=== PATIENT | female | born 1945 | race Caucasian/White ===

== ENCOUNTER 2016-12-08 09:00 | Day surgery (SDC) | payer OTHER ==
[2016-12-01 12:29] VITALS: BMI 27.4
[2016-12-08] MEDS ORDERED: MIDAZOLAM HCL 2 MG/2 ML SINGLE DOSE VIAL ONE (10:29)
[2016-12-08] MEDS ORDERED: ROCURONIUM BROMIDE 50 MG/5 ML VIAL ONE (10:31)
[2016-12-08] MEDS ORDERED: THROMBIN (BOVINE) 5,000 UNIT VIAL TP ONE ×3 (11:02→12:29)
[2016-12-08] MEDS ORDERED: GUM MASTIC/STORAX/MSAL/ALCOHOL 1 DRP DROPSBTL MC ONE (11:03)
[2016-12-08] MEDS ORDERED: GELATIN, ABSORBABLE 100 EACH SPONGE TP ONE ×2 (11:03→12:29)
[2016-12-08] MEDS ORDERED: ePHEDrine SULFATE 50 MG/1 ML AMPULE ONE (12:00)
[2016-12-08] MEDS ORDERED: ZOLPIDEM TARTRATE 5 MG TABLET PO PRN (14:21)
[2016-12-08] MEDS ORDERED: OXYCODONE/APAP 5/325MG COMBO TABLET PO PRN (14:21)
[2016-12-08] MEDS ORDERED: morphine CARPU-JECT 4 MG/1 ML DISP.SYRIN IM PRN (14:22)
[2016-12-08] MEDS ORDERED: SODIUM CHLORIDE 0.45% 1,000 ML IV SCH (14:30)
[2016-12-08] MEDS ORDERED: METHOTREXATE 2.5 MG TABLET PO SCH (14:30)
[2016-12-08] MEDS ORDERED: LACTATED RINGERS SOLUTION 1,000 ML IV SCH (14:45)
[2016-12-08] MEDS ORDERED: ONDANSETRON 4 MG/2 ML VIAL IVPUSH PRN (15:34)
[2016-12-08] MEDS: CEFAZOLIN 1 GM/D5W 50 ML IVPB SCH (17:19)
[2016-12-08] MEDS: FOLIC ACID 1 MG TABLET (FP) PO SCH (21:48)
[2016-12-08] MEDS: HYDROXYCHLOROQUINE SO4 200 MG TABLET (FP) PO SCH (21:48)
[2016-12-08] MEDS: DOCUSATE SODIUM 100 MG CAPSULE (FP) PO SCH (21:48)
[2016-12-08] MEDS: OXYCODONE/APAP 5/325MG COMBO TABLET PO PRN (21:49)
[2016-12-08] MEDS ORDERED: VALSARTAN 80 MG TABLET (UD) PO SCH (22:00)
[2016-12-09] MEDS: CEFAZOLIN 1 GM/D5W 50 ML IVPB SCH (01:11)
[2016-12-09 06:21] VITALS: PULSE 66
[2016-12-09] MEDS: OXYCODONE/APAP 5/325MG COMBO TABLET PO PRN (07:55)
--- NOTE | 2016-12-09 08:14 | PN ---
Progress Note (short form) - Note Progress Note: 71 F POD1 laminectomy L3-4-5 under general anesthetic doing well. AVSS, reports no anesthetic complicatons. Pain is well controlled. Sensory and motor exam is unchanged from baseline.
[2016-12-09] MEDS: HYDROXYCHLOROQUINE SO4 200 MG TABLET (FP) PO SCH (09:30)
[2016-12-09] MEDS: DOCUSATE SODIUM 100 MG CAPSULE (FP) PO SCH (09:30)
[2016-12-09] MEDS: FOLIC ACID 1 MG TABLET (FP) PO SCH (09:31)
[2016-12-09] MEDS ORDERED: PANTOPRAZOLE 40 MG TABLET (FP) PO SCH (10:00)
[2016-12-09] MEDS ORDERED: SERTRALINE HCL 50 MG TABLET (FP) PO SCH (10:00)
[2016-12-09] MEDS ORDERED: ATENOLOL 25 MG TABLET (FP) PO SCH (10:00)
[2016-12-09] MEDS ORDERED: LACTASE 3000 UNIT PO SCH (10:00)
[2016-12-09 10:14] VITALS: BP 130/90; TEMP 99.2
--- NOTE | 2016-12-09 11:30 | PN ---
Progress Note (short form) - Note Progress Note: states only back pain, legs much better with walking Afeb dressing clean NVID s/p 2 level laminectomy -d/c with home PT -wound care discussed -f/u next week
--- NOTE | 2016-12-17 20:34 | OP ---
DATE OF OPERATION: 12/08/2016 PREOPERATIVE DIAGNOSES: 1. Lumbar spinal stenosis. 2. Neurogenic claudication. POSTOPERATIVE DIAGNOSES: 1. Lumbar spinal stenosis. 2. Neurogenic claudication. PROCEDURE PERFORMED: Two-level lumbar decompressive laminectomy of L3-4 and L4-5. SURGEON: Trip Santana MD PBX SUPERVISOR: WILLEM Paredes ANESTHESIA: General. INDICATION: The patient is a 71-year-old female with severe longstanding bilateral lower extremity radicular pain and difficulty ambulating more than short distances. She has refractory to management with nonoperative treatment and is indicated for operative decompression. Risks, benefits and alternatives of the surgery were discussed in detail with the patient. Informed consent was obtained. DESCRIPTION: The patient was brought to the operating room via stretcher and general endotracheal anesthesia was administered by the anesthesiologist. The patient was then flipped into the prone position onto a padded Trevor frame. All bony prominences were padded. The back was then prepped and draped in the usual sterile fashion. A fluoroscopic C-arm was placed to allow for intraoperative lateral fluoroscopic radiographs. The back was then prepped and draped in the usual sterile fashion. Prophylactic IV antibiotics were administered. A time-out was performed. A midline incision was then made at the appropriate level. Dissection was carried down to the level of the fascia. The fascia was then split with electrocautery. Subperiosteal dissection was carried down, exposing the bony spine and the L4 and L3 laminae. A deep retractor was then placed. A complete decompressive laminectomy of the L4-L5 level was performed with a complete excision of the L4 lamina. There was medial facetectomy and foraminotomy performed to allow for external decompression of the lateral recesses. A subtotal laminectomy of the L3 lamina was then performed, decompressing the L3-4 level. External decompression was noted. There was noted to be severe spinal stenosis at both levels, in keep with the MRI. The wounds were then copiously irrigated. Hemostasis was achieved. The deep fascia was then closed with number 1 Vicryl suture in interrupted fashion. The deep dermal tissues were approximated with 2-0 Vicryl suture and the skin was closed with waqar. A sterile dressing was applied. Kemi Cohen was necessary throughout the case, who provided assistance in retraction of the neural elements in the laminectomy portion of the procedure. This could not have been done without a skilled employee relations assistant. Carlie [id number]
== END 2016-12-09 12:51 | disposition home health service (06) ==
LOC: FASU 09:00 → FM/S 16:26 → FASU 12-09 12:51
PROVIDERS: ATTEND Orthopaedic Surgery Orthopaedic Surgery of the Spine
PROC: 01NB0ZZ Release Lumbar Nerve, Open Approach (ICD-10-PCS; principal; 2016-12-08 12:02)
DX: M48.06 Spinal stenosis, lumbar region (principal)
CPT/HCPCS: 72100-TC; 76001-TC; 94760; 97116-GP

== ENCOUNTER 2018-06-08 14:01 | Observation (INO) | payer OTHER ==
[2018-06-08] MEDS ORDERED: LIDOCAINE 5% TOPICAL PATCH TP ONE (14:29)
[2018-06-08] MEDS ORDERED: CYCLOBENZAPRINE HCL 5 MG TABLET PO ONE (14:29)
[2018-06-08] MEDS ORDERED: ACETAMINOPHEN 325 MG TABLET (FP) PO ONE (14:29)
[2018-06-08] MEDS ORDERED: CYCLOBENZAPRINE HCL 10 MG TABLET (FP) ONE (14:36)
[2018-06-08] MEDS ORDERED: ACETAMINOPHEN 325 MG TABLET (FP) ONE (14:36)
--- NOTE | 2018-06-08 15:01 | PDOC ---
History of Present Illness - General Chief Complaint: Pain Stated Complaint: BACK PAIN AND DIFFICULTY WALKING Time Seen by Provider: 06/08/18 14:29 History Source: Patient Exam Limitations: No Limitations - History of Present Illness Initial Comments: 06/08/18 14:56 Jerri 72 YOF with h/o degenerative disc disease s/p laminectomy L3-4-5 in 2017 , urinary incontinence, rheumatoid arthritis, HTN, GERD, hiatal hernia presenting with lower back pain radiating down right leg. denies trauma. worse with walking, no paresthesias or weakness, urinary retention or bowel incontinence; +chronic urinary incontinence. +increased instability and difficulty walking x 2 days with increased lower back and RLE pain. last night - experienced syncopal episode, last remembered getting up to go use the toilet and does not recall events. heard a thud and found her on her knees next to the toilet. denies prodromal sx. did not use walker last night. has been followed with programmer business and neurologist for workup of confusion, possible TIA vs seizure for similar symptoms/episodes +also endorses chronic dry cough x 2-3 months, but no sob or cp or dizziness/ fevers. last epidural injection in October 2017 for back pain, no recent use, fevers or chills or IVDU or h/o malignancy PCP: Dr. Comer Neurologist: Dr. Jesus Espinoza, [place]. 06/08/18 17:02 06/08/18 17:02 Past History - Past Medical History Allergies/Adverse Reactions: Allergies Allergy/AdvReac Type Severity Reaction Status Date / Time azithromycin Allergy Intermediate Rash Verified 06/08/18 14:04 erythromycin base Allergy Intermediate Rash Verified 06/08/18 14:05 [Erythromycin Base] abatacept [From Orencia] AdvReac Severe headache/vo Verified 06/08/18 14:05 miting Home Medications: Ambulatory Orders Methotrexate Sodium [Methotrexate] 15 mg PO ASDIR tablet 11/06/15 Sertraline HCl [Zoloft -] 100 mg PO HS 01/28/16 Atenolol [Tenormin -] 25 mg PO DAILY 12/01/16 Leucovorin Calcium 10 mg PO HS tablet 02/24/17 Anemia: No Asthma: No Cancer: No Cardiac Disorders: No CVA: No COPD: No CHF: No Dementia: No Diabetes: No GI Disorders: Yes (GERD,HIATAL HERNIA) Disorders: No HTN: Yes Hypercholesterolemia: No Liver Disease: No Seizures: No Thyroid Disease: No Other medical history: RHEUMATOID ARTHRITIS - Surgical History Abdominal Surgery: No Appendectomy: No Cardiac Surgery: No Cholecystectomy: No Lung Surgery: No Neurologic Surgery: No Orthopedic Surgery: Yes - Immunization History Td Vaccination: No TDAP Vaccination: No Immunization Up to Date: Yes - Suicide/Smoking/Psychosocial Hx Smoking Status: No Smoking History: Former smoker Have you smoked in the past 12 months: No Number of Cigarettes Smoked Daily: 0 If you are a former smoker, when did you quit?: 30 YEARS Information on smoking cessation initiated: No Hx Alcohol Use: No Drug/Substance Use Hx: No Substance Use Type: None Hx Substance Use Treatment: No Review of Systems - Review of Systems Able to Perform ROS?: Yes Comments:: 06/08/18 15:02 GENERAL/CONSTITUTIONAL: No fever or chills. No weakness. no sweats. HEAD, EYES, EARS, NOSE AND THROAT: No change in vision or hearing. CARDIOVASCULAR: No chest pain or palpitations, or edema. +syncope RESPIRATORY: No SOB, wheezing. +cough GASTROINTESTINAL No nausea/vomiting. No diarrhea or constipation. No bloody stools. GENITOURINARY: No hematuria, dysuria, frequency, urgency or other changes. + chronic urinary incontinence. MUSCULOSKELETAL: No joint or muscle swelling. +back pain. +knee pain SKIN: No rash or changes in skin color or lesions. NEUROLOGIC: No headache, vertigo, or change in strength/sensation. +gait instability. +syncope/LOC HEMATOLOGIC/LYMPHATIC: No anemia, easy bruising/bleeding, or history of blood clots. ALLERGIC/IMMUNOLOGIC: No allergies All other systems reviewed and negative, or as documented in HPI. *Physical Exam - Vital Signs Last Vital Signs Temp Pulse Resp BP Pulse Ox 98.9 F 68 18 153/81 100 06/08/18 14:04 06/08/18 14:04 06/08/18 14:04 06/08/18 14:04 06/08/18 14:04 - Physical Exam Comments: 06/08/18 15:01 General: Well appearing, awake and alert, NAD. HEENT: NCAT, PERRL, EOMI, clear conjunctiva, anicteric, moist mucus membranes, clear oropharynx, no oral lesions.. Neck: neck supple, FROM, no JVD Resp: CTAB, normal and even respirations, no respiratory distress CVS: RRR, no murmurs, 2+ peripheral pulses throughout, no peripheral edema Abdomen: soft, NTND, no peritoneal signs. Back: normal inspection and ROM, +right paravertebral lumbar tenderness; no midline tenderness or bony stepoffs. MSK: no edema, KIM x4, ROM intact. No clubbing or cyanosis. normal bulk and tone. Neg SLR bilaterally. old surgical scar over left knee. +palp right prox tibia and anterior knee TTP w/o overlying skin changes or swelling. +RLE calf TTP. Neuro: alert, oriented appropriately; no focal neurologic deficits. SILT, 5/5 distal and prox strength in all extrem. speech clear. Skin: warm and well perfused, cap refill <2 sec, normal color Heart Score/ECG Review - ECG Impressions Comment:: 06/08/18 15:24 EKG normal sinus rhythm, no interval abnormalities, narrow QRS, ST segments/ morphology normal. Nonspecific T wave abnormalities in precordial leads and III. ED Treatment Course - LABORATORY CBC & Chemistry Diagram: 06/08/18 15:15 06/08/18 15:12 - RADIOLOGY Radiology Studies Ordered: Category Date Time Status HEAD CT WITHOUT CONTRAST [CT] Stat CT Scan 06/08/18 14:54 Ordered DUPLEX VASCUL US-2LEGS [US] Stat Ultrasound 06/08/18 14:55 Ordered - Medications Given in the ED: ED Medications Discontinued Medications Generic Name Dose Route Start Last Admin Trade Name Freq PRN Reason Stop Dose Admin Acetaminophen 975 mg 06/08/18 14:29 06/08/18 14:40 Tylenol - PO 06/08/18 14:30 975 mg ONCE ONE Administration Cyclobenzaprine HCl 10 mg 06/08/18 14:29 06/08/18 14:40 Cyclobenzaprine Hcl PO 06/08/18 14:30 10 mg ONCE ONE Administration Lidocaine 1 patch 06/08/18 14:29 06/08/18 14:40 Lidoderm Patch - TP 06/08/18 14:30 1 patch ONCE ONE Administration Medical Decision Making - Medical Decision Making 06/08/18 15:00 72 YOF with RA, lumbar back pain s/p laminectomy in 2017, HTN, GERD hiatal hernia p/w back pain. syncope yesterday on toilet. difficulty walking and frequent falls. DDx DVT/PE, superficial thrombophlebitis, msk strain, muscle tear, neuropathy, sciatica. TIA, CVA, NPH, seizure, syncope, cardiogenic syncope, arrhythmia. electrolyte/metabolic derangements, UTI, pneumonia, malignancy. deconditioning. Considered but clinically doubt based on HPI and PE: compartment syndrome or ischemic limb based on history and physical exam. Vital signs reviewed, wnl. no fever Plan: CBC, Chem, trop, EKG, CXR, right knee XR, bilateral duplex to r/o DVT, UA , urine cx Prior notes reviewed, including admissions, discharges and consultations. laboratory results and imaging reviewed, basic labs and lytes wnl, trop neg. . EKG normal sinus rhythm, no interval abnormalities, narrow QRS, ST segments/ morphology normal. Nonspecific T wave abnormalities in precordial leads and III. CT head no acute changes, no CVA. moderate atrophy and periventricular chronic microvascular ischemic disease w/o acute intracranial pathology. UA neg for infection, CXR unremarkable. XR knee unremarkable, degenerative changes present. Dispo: Admit for back pain, syncope workup; fall risk and frequent falls and safety concerns.. Discussed results and management plan with pt and family member at bedside, agree with impression and plan = admit to [facility] hospitalist, admit to Dr. Worley Telemetry obs. consults requested with neuro Dr. Crespo and cards Dr. Girard 06/08/18 17:01 *DC/Admit/Observation/Transfer Diagnosis at time of Disposition: Syncope, Back pain, Leg pain, Frequent falls - Discharge Dispostion Condition at time of disposition: Stable Decision to Admit order: Yes Decision to Admit order Date/Time: Decision to Admit Order Category Date Time Status Decision to Admit to Hospital Routine Admission 06/08/18 14:54 Ordered - Referrals - Patient Instructions - Post Discharge Activity
[2018-06-08 15:28] LABS: BASO % 1.5 % (0-2.0); EOS % 2.6 % (0-4.5); HEMATOCRIT 40.3 % (32.4-45.2); HEMOGLOBIN 13.1 GM/dl (10.7-15.3); LYMPH % 33.6 % (8-40); MCH 32.9 pg (25.7-33.7); MCHC 32.6 g/dl (32.0-36.0); MEAN CELL VOLUME 100.7 fl (80-96); MEAN PLT VOLUME 8.5 fl (7.5-11.1); MONO % 10.8 % (3.8-10.2); NEUT % 51.5 % (42.8-82.8); PLATELET COUNT 215 K/MM3 (134-434); RDW 13.9 % (11.6-15.6); WHITE BLOOD COUNT 5.7 K/mm3 (4.0-10.8)
[2018-06-08 16:13] LABS: URINE APPEARANCE Clear; URINE BILIRUBIN Negative (NEGATIVE); URINE COLOR Yellow; URINE GLUCOSE (UA) Negative (NEGATIVE); URINE KETONE Negative (NEGATIVE); URINE LEUK ESTERASE Negative (NEGATIVE); URINE NITRITE Negative (NEGATIVE); URINE PROTEIN Negative (NEGATIVE); URINE UROBILINOGEN 0.2 (0.2-1.0)
[2018-06-08 16:41] LABS: ALK PHOS 21 U/L (32-92); ANION GAP 8 MMOL/L (8-16); BILIRUBIN,TOTAL 0.9 mg/dl (0.2-1.0); BLOOD UREA NITROGEN 18 mg/dl (7-18); CALCIUM 9.7 mg/dl (8.4-10.2); CHLORIDE 100 mmol/L (98-107); CO2 28 mmol/L (22-28); CREATININE 0.9 mg/dl (0.6-1.3); POTASSIUM 4.1 mmol/L (3.5-5.1); SGOT/AST 22 U/L (10-42); SGPT/ALT 20 U/L (10-40); SODIUM 136 mmol/L (136-145)
[2018-06-08 16:42] LABS: GLUCOSE,RANDOM 102 mg/dl (74-106)
--- NOTE | 2018-06-08 18:30 | CON.CARD ---
Consult Consult Specialty:: Cardiology Referred by:: Hospitalist Medicine Reason for Consultation:: Syncope - History of Present Illness Chief Complaint: Syncope History of Present Illness: 72 YOF with h/o degenerative disc disease s/p laminectomy L3-4-5 in 2017, urinary incontinence, rheumatoid arthritis, HTN, GERD, hiatal hernia initially presented with lower back pain radiating down right leg. denies trauma. worse with walking, no paresthesias or weakness, urinary retention or bowel incontinence; +chronic urinary incontinence. +increased instability and difficulty walking x 2 days with increased lower back and RLE pain, last epidural injection in October 2017 for back pain. She also reported experiencing syncopal episode, last remembered getting up to go use the toilet and does not recall events. heard a thud and found her on her knees next to the toilet. denies prodromal sx, chest pain, palpitations, orthopnea, PND or LE edema. - History Source History Provided By: Patient Limitations to Obtaining History: No Limitations - Alcohol/Substance Use Hx Alcohol Use: No - Smoking History Smoking history: Former smoker Have you smoked in the past 12 months: No Aproximately how many cigarettes per day: 0 If you are a former smoker, when did you quit?: 30 YEARS Home Medications - Allergies Allergies/Adverse Reactions: Allergies Allergy/AdvReac Type Severity Reaction Status Date / Time azithromycin Allergy Intermediate Rash Verified 06/08/18 14:04 erythromycin base Allergy Intermediate Rash Verified 06/08/18 14:05 [Erythromycin Base] abatacept [From Orencia] AdvReac Severe headache/vo Verified 06/08/18 14:05 miting - Home Medications Home Medications: Ambulatory Orders Methotrexate Sodium [Methotrexate] 15 mg PO ASDIR tablet 11/06/15 Sertraline HCl [Zoloft -] 100 mg PO HS 01/28/16 Atenolol [Tenormin -] 25 mg PO DAILY 12/01/16 Leucovorin Calcium 10 mg PO HS tablet 02/24/17 Review of Systems - Review of Systems Genitourinary: reports: Incontinence Neurological: reports: Syncope Vital Signs: Vital Signs Temperature 98.4 F 06/08/18 18:20 Pulse Rate 66 06/08/18 18:20 Respiratory Rate 18 06/08/18 18:20 Blood Pressure 128/54 06/08/18 18:20 O2 Sat by Pulse Oximetry (%) 97 06/08/18 18:20 Constitutional: Yes: No Distress, Calm Neck: Yes: Supple Respiratory: Yes: Regular, CTA Bilaterally Gastrointestinal: Yes: Normal Bowel Sounds, Soft Cardiovascular: Yes: Regular Rate and Rhythm JVD: No Carotid Bruit: No Heart Sounds: Yes: S1, S2 Edema: No - Other Data Labs, Other Data: CBC, BMP 06/08/18 15:15 06/08/18 15:12 Troponin, BNP 06/08/18 15:12 Troponin I < 0.03 Troponin, BNP 06/08/18 15:12 Troponin I < 0.03 SB @ [address]-T changes Imaging - Results Cat Scan: Report Reviewed (HCT Negative) Ultrasound: Report Reviewed (Vascular U/S-No DVT) Problem List - Problems (1) Hypertension Code(s): I10 - ESSENTIAL (PRIMARY) HYPERTENSION Qualifiers: Hypertension type: essential hypertension Qualified Code(s): I10 - Essential (primary) hypertension (2) Gait instability Code(s): R26.81 - UNSTEADINESS ON FEET (3) History of laminectomy Code(s): Z98.890 - OTHER SPECIFIED POSTPROCEDURAL STATES (4) Frequent falls Code(s): R29.6 - REPEATED FALLS (5) Syncope Code(s): R55 - SYNCOPE AND COLLAPSE Qualifiers: Syncope type: vasovagal syncope Qualified Code(s): R55 - Syncope and collapse Assessment/Plan 1. Syncope suspect micturition etiology on toilet 2. RA 3. Lumbar back pain s/p laminectomy in 2017 with gait instability and frequent falls 3.HTN 4. GERD hiatal hernia P:1. signs and displays sales representative to exclude arrhythmias 2. Orthostatic VS 3. Echocardiogram to assess ventricular and valve fxn 4. Consider upright tilt table testing as outpatient 5. PT for gait training 6. Thank you for consultative opportunity
[2018-06-08 18:38] VITALS: BMI 27.3
[2018-06-08] MEDS ORDERED: LIDOCAINE PATCH REMOVAL MC SCH (22:00)
--- NOTE | 2018-06-09 01:04 | HP ---
CHIEF COMPLAINT: syncope PCP: N[facility] HISTORY OF PRESENT ILLNESS: This is a 72 year old female with a significant past medical history of HTN, RA , Lumbar laminectomy L3-L5 who presented to the ED s/p syncope last night. Pt states she went to the bathroom, remembers entering the bathroom and then woke up on the floor. Her heard a noise and went to check on her and found her on the bathroom floor. She denies any prodromal symptoms. She reports that she has been having increased pain in her lower back radiating to her legs and has been having balance problems. She is currently going for physical therapy twice weekly for her back and balance. She reports a history of multiple falls ER course was notable for: (1) troponin neg x 1, ecg no changes (2) CT head Recent Travel: pt denies PAST MEDICAL HISTORY: HTN, RA, degenerative disc disease, GERD, hiatal hernia, urinary incontinence PAST SURGICAL HISTORY: Laminectomy L3-L5 2017 left rotator cuff repair L TKR L wrist ORIF Social History: Smoking: pt denies Alcohol: occ glass wine Drugs: pt denies Family History: mother age 88, colon problems, muscle and nerve problems, unknown COD father age 88, prostate CA, dementia brother currently being evaluated for stomach tumor brother with HTN, HLD, liver disease (former ETOH and drug abuser) Allergies azithromycin Allergy (Intermediate, Verified 06/08/18 14:04) Rash erythromycin base [Erythromycin Base] Allergy (Intermediate, Verified 06/08/18 14:05) Rash abatacept [From Orencia] Adverse Reaction (Severe, Verified 06/08/18 14:05) headache/vomiting HOME MEDICATIONS: 3 Medication Instructions Recorded Methotrexate Sodium [Methotrexate] 15 mg PO ASDIR tablet 11/06/15 Sertraline HCl [Zoloft -] 100 mg PO HS 01/28/16 Atenolol [Tenormin -] 25 mg PO DAILY 12/01/16 Leucovorin Calcium 10 mg PO HS tablet 02/24/17 REVIEW OF SYSTEMS CONSTITUTIONAL: Absent: fever, chills, diaphoresis, generalized weakness, malaise, loss of appetite, weight change HEENT: Absent: rhinorrhea, nasal congestion, throat pain, throat swelling, difficulty swallowing, mouth swelling, ear pain, eye pain, visual changes CARDIOVASCULAR: Present: syncope Absent: chest pain, palpitations, irregular heart rate, lightheadedness, peripheral edema RESPIRATORY: Absent: cough, shortness of breath, dyspnea with exertion, orthopnea, wheezing, stridor, hemoptysis GASTROINTESTINAL: Absent: abdominal pain, abdominal distension, nausea, vomiting, diarrhea, constipation, melena, hematochezia GENITOURINARY: Absent: dysuria, frequency, urgency, hesitancy, hematuria, flank pain, genital pain MUSCULOSKELETAL: Absent: myalgia, arthralgia, joint swelling, back pain, neck pain SKIN: Absent: rash, itching, pallor HEMATOLOGIC/IMMUNOLOGIC: Absent: easy bleeding, easy bruising, lymphadenopathy, frequent infections ENDOCRINE: Absent: unexplained weight gain, unexplained weight loss, heat intolerance, cold intolerance NEUROLOGIC: Absent: headache, focal weakness or paresthesias, dizziness, unsteady gait, seizure, mental status changes, bladder or bowel incontinence PSYCHIATRIC: Absent: anxiety, depression, suicidal or homicidal ideation, hallucinations. PHYSICAL EXAMINATION Vital Signs - 24 hr 3 06/08/18 06/08/18 06/08/18 14:04 18:17 18:20 Temperature 98.9 F 98.4 F 98.4 F Pulse Rate 68 67 66 Respiratory 18 18 Rate Blood Pressure 153/81 128/54 128/54 O2 Sat by Pulse 100 97 Oximetry (%) 3 06/08/18 06/08/18 06/08/18 19:53 19:55 19:57 Temperature 98.0 F Pulse Rate 67 71 63 Respiratory 18 18 Rate Blood Pressure 137/68 131/71 129/58 O2 Sat by Pulse 98 100 93 L Oximetry (%) GENERAL: Awake, alert, and fully oriented, in no acute distress. HEAD: Normal with no signs of trauma. EYES: Pupils equal, round and reactive to light, extraocular movements intact, sclera anicteric, conjunctiva clear. No lid lag. EARS, NOSE, THROAT: Ears normal, nares patent, oropharynx clear without exudates. Moist mucous membranes. NECK: Normal range of motion, supple without lymphadenopathy, JVD, or masses. LUNGS: Breath sounds equal, clear to auscultation bilaterally. No wheezes, and no crackles. No accessory muscle use. HEART: Regular rate and rhythm, normal S1 and S2 without murmur, rub or gallop. ABDOMEN: Soft, nontender, not distended, normoactive bowel sounds, no guarding, no rebound, no masses. No hepatomegaly or splenomegaly. MUSCULOSKELETAL: Normal range of motion at all joints. No bony deformities or tenderness. No CVA tenderness. UPPER EXTREMITIES: 2+ pulses, warm, well-perfused. No cyanosis. No clubbing. No peripheral edema. LOWER EXTREMITIES: 2+ pulses, warm, well-perfused. No calf tenderness. No peripheral edema. NEUROLOGICAL: Cranial nerves II-XII intact. Normal speech. gait not observed PSYCHIATRIC: Cooperative. Good eye contact. Appropriate mood and affect. SKIN: Warm, dry, normal turgor, no rashes or lesions noted, normal capillary refill. Laboratory Results - last 24 hr 3 06/08/18 06/08/18 06/08/18 06/08/18 15:12 15:12 15:15 21:00 WBC 5.7 RBC 4.00 Hgb 13.1 Hct 40.3 MCV 100.7 H MCH 32.9 MCHC 32.6 RDW 13.9 Plt Count 215 MPV 8.5 Absolute Neuts (auto) 3.0 Neutrophils % 51.5 Lymphocytes % 33.6 Monocytes % 10.8 H Eosinophils % 2.6 Basophils % 1.5 Sodium 136 Potassium 4.1 Chloride 100 Carbon Dioxide 28 Anion Gap 8 BUN 18 Creatinine 0.9 Creat Clearance w eGFR > 60 Random Glucose 102 Calcium 9.7 Total Bilirubin 0.9 AST 22 ALT 20 Alkaline Phosphatase 21 L Creatine Kinase 34 Troponin I < 0.03 < 0.03 Total Protein 7.0 Albumin 4.0 Urine Color Urine Appearance Urine pH Ur Specific Hayden Urine Protein Urine Glucose (UA) Urine Ketones Urine Blood Urine Nitrite Urine Bilirubin Urine Urobilinogen Ur Leukocyte Esterase 3 Urine Color Yellow 06/08/18 15:34 Urine Appearance Clear 06/08/18 15:34 Urine pH 7.0 (4.5-8) 06/08/18 15:34 Ur Specific Hayden 1.015 (1.005-1.025) 06/08/18 15:34 Urine Protein Negative (NEGATIVE) 06/08/18 15:34 Urine Glucose (UA) Negative (NEGATIVE) 06/08/18 15:34 Urine Ketones Negative (NEGATIVE) 06/08/18 15:34 Urine Blood Negative (NEGATIVE) 06/08/18 15:34 Urine Nitrite Negative (NEGATIVE) 06/08/18 15:34 Urine Bilirubin Negative (NEGATIVE) 06/08/18 15:34 Ur Leukocyte Esterase Negative (NEGATIVE) 06/08/18 15:34 ECG sinus bradycardia vent rate 57, QTC [address]/T wave changes Radiology Reports CT head IMPRESSION: No significant interval change. Moderate atrophy and probable mild periventricular chronic microvascular ischemic disease changes without gross evidence of acute intracranial pathology. No acute intracranial hemorrhage is seen. The calvarium is intact. Reported By: Aram Colunga MD 06/08/18 [id number] ASSESSMENT/PLAN: 72yF with PMH deg disc disease, RA, HTN, GERD, hiatal hernia, urinary incontinence presented to the ED with back pain rad to right leg as well as syncope last night. Syncope - monitor tele - trend trops - cardiology consult appreciated HTN - cont home atenolol, hold for HR less than 55 GERD - occ takes antacid at home - will start ranitidine while inpt back pain - lidoderm patch - flexeril as tolerated - PT DVT PPX - anticipated LOS less than 48h, defer heparin FEN - tolerating po - BMP becky - low sodium diet as tolerated Dispo: pt currently requires further observation for management of her emergent condition. Visit type - Emergency Visit Emergency Visit: Yes ED Registration Date: 06/08/18 Care time: The patient presented to the Emergency Department on the above date and was hospitalized for further evaluation of their emergent condition. - New Patient This patient is new to me today: Yes Date on this admission: 06/09/18 - Critical Care Critical Care patient: No Hospitalist Screening - Colonoscopy Questionnaire Colonoscopy Questionnaire: Colonoscopy Questionnaire - Patient: 50 - 75 years old and never had a screening colonoscopy: No History of colon or rectal polyps, or CA: No History of IBD, Crohn's disease or UC: No History of abdominal radiation therapy as a child: No - Relative: 1 with colon or rectal CA, or polyps at age 60 or younger: No Colon or rectal CA diagnosed at age 45 or younger: No Multiple relatives with colon or rectal CA: No - Outcome: Screening Result: Negative Screen
[2018-06-09] MEDS: CYCLOBENZAPRINE HCL 10 MG TABLET (FP) PO SCH ×3 (05:56→21:20)
[2018-06-09 08:11] LABS: BASO % 0.6 % (0-2.0); EOS % 3.3 % (0-4.5); HEMATOCRIT 39.2 % (32.4-45.2); HEMOGLOBIN 13.1 GM/dl (10.7-15.3); LYMPH % 38.9 % (8-40); MCH 33.8 pg (25.7-33.7); MCHC 33.5 g/dl (32.0-36.0); MEAN CELL VOLUME 100.7 fl (80-96); MEAN PLT VOLUME 9.3 fl (7.5-11.1); NEUT % 50.2 % (42.8-82.8); PLATELET COUNT 190 K/MM3 (134-434); RBC 3.89 M/mm3 (3.60-5.2); WHITE BLOOD COUNT 5.7 K/mm3 (4.0-10.8)
[2018-06-09 08:31] LABS: ANION GAP 8 MMOL/L (8-16); BLOOD UREA NITROGEN 17 mg/dl (7-18); CALCIUM 9.1 mg/dl (8.4-10.2); CHLORIDE 102 mmol/L (98-107); CO2 29 mmol/L (22-28); CREATININE 0.9 mg/dl (0.6-1.3); GLUCOSE,RANDOM 97 mg/dl (74-106); PHOSPHOROUS 4.3 mg/dl (2.5-4.6); POTASSIUM 4.1 mmol/L (3.5-5.1); SODIUM 139 mmol/L (136-145)
[2018-06-09] MEDS ORDERED: KETOROLAC TROMETHAMINE 30 MG/1 ML VIAL IVPUSH ONE (09:06)
--- NOTE | 2018-06-09 09:09 | PN ---
Physical Exam: SUBJECTIVE: Patient seen and examined, reports pain to lower back radiating to lower back, patient denies any saddle anesthesia or changes to bowel or bladder patterns. OBJECTIVE: patient is a 72 year old female with a significant past medical history of HTN, RA, and Lumbar laminectomy L3-L5. Patient was admitted from the emergency department to observation for syncopal episode and intractable back pain Vital Signs Period Temp Pulse Resp BP Sys/Machado Pulse Ox Last 24 Hr 98.0 F-98.9 F 62-71 18-18 128-153/54-81 93-100 GENERAL: The patient is awake, alert, and fully oriented, in no acute distress. HEAD: Normal with no signs of trauma. EYES: PERRL, extraocular movements intact, sclera anicteric, conjunctiva clear. No ptosis. ENT: Ears normal, nares patent, oropharynx clear without exudates, moist mucous membranes. NECK: Trachea midline, full range of motion, supple. LUNGS: Breath sounds equal, clear to auscultation bilaterally, no wheezes, no crackles, no accessory muscle use. HEART: Regular rate and rhythm, S1, S2 without murmur, rub or gallop. ABDOMEN: Soft, nontender, nondistended, normoactive bowel sounds, no guarding, no rebound, no hepatosplenomegaly, no masses. EXTREMITIES: 2+ pulses, warm, well-perfused, no edema. positive SLR to right lower extremity at 45 negative SLR to left lower extremity a 45 and at 90 NEUROLOGICAL: Cranial nerves II through XII grossly intact. Normal speech, gait not observed. PSYCH: Normal mood, normal affect. SKIN: Warm, dry, normal turgor, no rashes or lesions noted Laboratory Results - last 24 hr 06/08/18 06/08/18 06/08/18 15:12 15:12 15:15 WBC 5.7 RBC 4.00 Hgb 13.1 Hct 40.3 MCV 100.7 H MCH 32.9 MCHC 32.6 RDW 13.9 Plt Count 215 MPV 8.5 Absolute Neuts (auto) 3.0 Neutrophils % 51.5 Lymphocytes % 33.6 Monocytes % 10.8 H Eosinophils % 2.6 Basophils % 1.5 Sodium 136 Potassium 4.1 Chloride 100 Carbon Dioxide 28 Anion Gap 8 BUN 18 Creatinine 0.9 Creat Clearance w eGFR > 60 Random Glucose 102 Calcium 9.7 Phosphorus Magnesium Total Bilirubin 0.9 AST 22 ALT 20 Alkaline Phosphatase 21 L Creatine Kinase Troponin I < 0.03 Total Protein 7.0 Albumin 4.0 Urine Color Urine Appearance Urine pH Ur Specific Mica Urine Protein Urine Glucose (UA) Urine Ketones Urine Blood Urine Nitrite Urine Bilirubin Urine Urobilinogen Ur Leukocyte Esterase 06/08/18 06/08/18 06/08/18 15:34 21:00 21:00 WBC RBC Hgb Hct MCV MCH MCHC RDW Plt Count MPV Absolute Neuts (auto) Neutrophils % Lymphocytes % Monocytes % Eosinophils % Basophils % Sodium Potassium Chloride Carbon Dioxide Anion Gap BUN Creatinine Creat Clearance w eGFR Random Glucose Calcium Phosphorus Magnesium Total Bilirubin AST ALT Alkaline Phosphatase Creatine Kinase 34 Troponin I < 0.03 Total Protein Albumin Urine Color Yellow Urine Appearance Clear Urine pH 7.0 Ur Specific Mica 1.015 Urine Protein Negative Urine Glucose (UA) Negative Urine Ketones Negative Urine Blood Negative Urine Nitrite Negative Urine Bilirubin Negative Urine Urobilinogen 0.2 Ur Leukocyte Esterase Negative 06/09/18 06/09/18 06/09/18 06:50 06:50 06:50 WBC 5.7 RBC 3.89 Hgb 13.1 Hct 39.2 MCV 100.7 H MCH 33.8 H MCHC 33.5 RDW 14.0 Plt Count 190 MPV 9.3 Absolute Neuts (auto) 2.8 Neutrophils % 50.2 Lymphocytes % 38.9 Monocytes % 7.0 Eosinophils % 3.3 Basophils % 0.6 Sodium 139 Potassium 4.1 Chloride 102 Carbon Dioxide 29 H Anion Gap 8 BUN 17 Creatinine 0.9 Creat Clearance w eGFR > 60 Random Glucose 97 Calcium 9.1 Phosphorus 4.3 Magnesium 2.0 Total Bilirubin AST ALT Alkaline Phosphatase Creatine Kinase 30 Troponin I < 0.03 Total Protein Albumin Urine Color Urine Appearance Urine pH Ur Specific Mica Urine Protein Urine Glucose (UA) Urine Ketones Urine Blood Urine Nitrite Urine Bilirubin Urine Urobilinogen Ur Leukocyte Esterase Active Medications Generic Name Dose Route Start Last Admin Trade Name Freq PRN Reason Stop Dose Admin Atenolol 25 mg 06/09/18 10:00 Tenormin - PO DAILY LASHAE Cyclobenzaprine HCl 5 mg 06/09/18 06:00 06/09/18 05:56 Flexeril - PO 5 mg TID LASHAE Administration Lidocaine 1 patch 06/09/18 10:00 Lidoderm Patch - TP DAILY LASHAE Miscellaneous 1 each 06/09/18 22:00 Lidoderm Patch Removal MC DAILY@2200 [facility] Ranitidine HCl 150 mg 06/09/18 10:00 Zantac - PO DAILY LASHAE Sertraline HCl 100 mg 06/09/18 22:00 Zoloft - PO HS [facility] ECG sinus bradycardia vent rate 57, QTC [address]/T wave changes Radiology Reports CT head IMPRESSION: No significant interval change. Moderate atrophy and probable mild periventricular chronic microvascular ischemic disease changes without gross evidence of acute intracranial pathology. No acute intracranial hemorrhage is seen. The calvarium is intact. Reported By: Aram Colunga MD 06/08/18 1551 carotid doppler: no hemodynamic stenosis noted ASSESSMENT/PLAN: 1) cardiovascular Syncope - pending echo, carotid Doppler noted - Troponin 3 WNL - Cardiology consulted and following, patient will require outpatient follow-up - neurology consulted and following Hypertension - Continue home dose atenolol blood pressure at goal. 2) GERD - continue ranitidine 3) MS back pain - continue lidoderm patch, flexeril as tolerated and naproxyn - pending physical therpy evaluation DVT PPX - anticipated LOS less than 48h, defer heparin FEN - tolerating po - BMP becky - low sodium diet as tolerated Dispo: pt currently requires further observation for management of her emergent condition. Visit type - Emergency Visit Emergency Visit: Yes ED Registration Date: 06/08/18 Care time: The patient presented to the Emergency Department on the above date and was hospitalized for further evaluation of their emergent condition. - New Patient This patient is new to me today: Yes Date on this admission: 06/09/18 - Critical Care Critical Care patient: No - Discharge Referral Referred to [facility] Med P.C.: No
--- NOTE | 2018-06-09 09:44 | CON.NEURO ---
Consult - History of Present Illness History of Present Illness: 72 year old female with a significant past medical history of HTN, RA, Lumbar laminectomy L3-L5 who presented to the ED s/p syncope last night. Pt states she went to the bathroom, remembers entering the bathroom and then woke up on the floor. Her heard a noise and went to check on her and found her on the bathroom floor. She denies any prodromal symptoms. She reports that she has been having increased pain in her lower back radiating to her legs and has been having balance problems. She is currently going for physical therapy twice weekly for her back and balance. She reports a history of multiple falls. ? TIA like vent 2 months ago- She has neuro and ortho at [facility]. she had recent MRI at [facility]-. CT HD No significant interval change. Moderate atrophy and probable mild periventricular chronic microvascular ischemic disease changes without gross evidence of acute intracranial pathology. No acute intracranial hemorrhage is seen. The calvarium is intact. - Alcohol/Substance Use Hx Alcohol Use: No - Smoking History Smoking history: Former smoker Have you smoked in the past 12 months: No Aproximately how many cigarettes per day: 0 If you are a former smoker, when did you quit?: 30 YEARS Home Medications - Allergies Allergies/Adverse Reactions: Allergies Allergy/AdvReac Type Severity Reaction Status Date / Time azithromycin Allergy Intermediate Rash Verified 06/08/18 14:04 erythromycin base Allergy Intermediate Rash Verified 06/08/18 14:05 [Erythromycin Base] abatacept [From Orencia] AdvReac Severe headache/vo Verified 06/08/18 14:05 miting - Home Medications Home Medications: Ambulatory Orders Methotrexate Sodium [Methotrexate] 15 mg PO ASDIR tablet 11/06/15 Sertraline HCl [Zoloft -] 100 mg PO HS 01/28/16 Atenolol [Tenormin -] 25 mg PO DAILY 12/01/16 Leucovorin Calcium 10 mg PO HS tablet 02/24/17 Physical Exam-Neuro Vital Signs: Vital Signs Temperature 98.3 F 06/09/18 04:25 Pulse Rate 84 06/09/18 09:34 Respiratory Rate 18 06/09/18 09:34 Blood Pressure 152/87 06/09/18 09:34 O2 Sat by Pulse Oximetry (%) 99 06/09/18 04:25 Labs: CBC, BMP 06/09/18 06:50 06/09/18 06:50 - Neuro Exam Level Of Consciousness: Yes: Alert, Oriented to Person (EOMI, no facila, motor 5 /5, including TA and EHL , patellar (-), Achilles 2+ BL , needs cane ) Imaging - Results Cat Scan: Report Reviewed, Image Reviewed Problem List - Problems (1) Back pain Code(s): M54.9 - DORSALGIA, UNSPECIFIED (2) Gait instability Code(s): R26.81 - UNSTEADINESS ON FEET (3) History of laminectomy Code(s): Z98.890 - OTHER SPECIFIED POSTPROCEDURAL STATES (4) Syncope Code(s): R55 - SYNCOPE AND COLLAPSE Qualifiers: Syncope type: vasovagal syncope Qualified Code(s): R55 - Syncope and collapse Assessment/Plan 72 year old female with a significant past medical history of HTN, RA, Lumbar laminectomy L3-L5 who presented to the ED s/p syncope last night. Pt states she went to the bathroom, remembers entering the bathroom and then woke up on the floor. Her heard a noise and went to check on her and found her on the bathroom floor. She denies any prodromal symptoms. She reports that she has been having increased pain in her lower back radiating to her legs and has been having balance problems. She is currently going for physical therapy twice weekly for her back and balance. She reports a history of multiple falls. ? TIA like vent 2 months ago- She has neuro and ortho at [facility]. she had recent MRI at [facility]-. CT HD No significant interval change. Moderate atrophy and probable mild periventricular chronic microvascular ischemic disease changes without gross evidence of acute intracranial pathology. No acute intracranial hemorrhage is seen. The calvarium is intact. AP : 1) Likely vasovagal event , no evidence of a stroke or seizure. cardiac ADAMS PRN 2) chronic radicular pain R L4-L5; no focal weakness, and will require outpt FU with [facility] and her neuro - clinically stable , no signs of a myelopathy or acute radiculopathy. DR RICK
[2018-06-09] MEDS ORDERED: ATENOLOL 25 MG TABLET (FP) PO SCH (10:00)
[2018-06-09] MEDS: LIDOCAINE 5% TOPICAL PATCH TP SCH (10:23)
[2018-06-09] MEDS: ATENOLOL 25 MG TABLET (FP) PO SCH (10:23)
[2018-06-09] MEDS: RANITIDINE HCL 150 MG TABLET (FP) PO SCH (10:24)
--- NOTE | 2018-06-09 11:55 | EKG ---
Test Reason : Blood Pressure : / mmHG Vent. Rate : 057 BPM Atrial Rate : 057 BPM P-R Int : 156 ms QRS Dur : 084 ms QT Int : 426 ms P-R-T Axes : 030 -03 020 degrees QTc Int : 414 ms SINUS BRADYCARDIA OTHERWISE NORMAL ECG NO PREVIOUS ECGS AVAILABLE Confirmed by ANDRESSA DE LA CRUZ MD ([id number]) on 06/09/2018 11:55:16 AM Referred By: MD PÉREZ Confirmed By:ANDRESSA DE LA CRUZ MD
[2018-06-09] MEDS: NAPROXEN 500 MG TABLET (FP) PO PRN (14:30)
--- NOTE | 2018-06-09 16:20 | ECHO ---
Name: NIKKY VERMA Exam:Adult Echocardiogram Study Date: 06/09/2018 10:16 AM Age: 72 yrs Reason For Study: SYNCOPE Height: 63 in Weight: 154 lb BSA: 1.7 m2 MMode/2D Measurements & Calculations IVSd: 0.89 cm Ao root diam: 2.3 cm LVIDd: 4.6 cm LA dimension: 3.0 cm LVIDs: 2.9 cm LVPWd: 0.75 cm EDV(Teich): 95.0 ml ESV(Teich): 33.4 ml Doppler Measurements & Calculations MV E max alexandria: 60.3 cm/sec MV A max alexandria: 73.2 cm/sec MV dec slope: 266.6 cm/sec2 MV E/A: 0.82 Ao V2 max: 145.0 cm/sec LV V1 max P.7 mmHg Ao max P.4 mmHg LV V1 mean P.1 mmHg Ao V2 mean: 104.3 cm/sec LV V1 max: 108.0 cm/sec Ao mean P.8 mmHg LV V1 mean: 68.9 cm/sec Ao V2 VTI: 31.4 cm LV V1 VTI: 22.6 cm TR max alexandria: 197.2 cm/sec TR max P.7 mmHg Procedure A complete two-dimensional transthoracic echocardiogram was performed (2D, M-mode, Doppler and color flow Doppler). Left Ventricle The left ventricular size, thickness and function are normal. The left ventricular ejection fraction is normal. Ejection Fraction = 60-65%. The left ventricular wall motion is normal. Right Ventricle The right ventricle is normal in size and function. Atria Normal left and right atrial size and function. Mitral Valve There is no mitral regurgitation noted. Tricuspid Valve There is mild tricuspid regurgitation. Right ventricular systolic pressure is normal. Aortic Valve No hemodynamically significant valvular aortic stenosis. No aortic regurgitation is present. Pulmonic Valve There is no pulmonic valvular regurgitation. Great Vessels The aortic root is normal size. Pericardium/Pleura There is no pericardial effusion. Interpretation Summary The left ventricular size, thickness and function are normal. The right ventricle is normal in size and function. There is mild tricuspid regurgitation. MD Rubén Maxwell 06/09/2018 02:43 PM
[2018-06-09] MEDS ORDERED: LIDOCAINE PATCH REMOVAL MC SCH (22:00)
[2018-06-09] MEDS ORDERED: SERTRALINE HCL 50 MG TABLET (FP) PO SCH (22:00)
[2018-06-10] MEDS ORDERED: PT OWN MED DRAWER 7, Y5N ONE (00:22)
[2018-06-10] MEDS: NAPROXEN 500 MG TABLET (FP) PO PRN (00:23)
[2018-06-10] MEDS: CYCLOBENZAPRINE HCL 10 MG TABLET (FP) PO SCH (06:36)
[2018-06-10 06:38] VITALS: BP 136/62; PULSE 55; TEMP 97.9
--- NOTE | 2018-06-10 08:35 | PN ---
Progress Note, Physician History of Present Illness: No further near or true syncope. Continued chronic sciatica symptoms through right buttock and thigh. - Current Medication List Current Medications: Active Medications Atenolol (Tenormin -) 25 mg PO DAILY [facility] Last Admin: 06/09/18 10:23 Dose: 25 mg Cyclobenzaprine HCl (Flexeril -) 5 mg PO TID [facility] Last Admin: 06/10/18 06:36 Dose: 5 mg Lidocaine (Lidoderm Patch -) 1 patch TP DAILY [facility] Last Admin: 06/09/18 10:23 Dose: 1 patch Miscellaneous (Lidoderm Patch Removal) 1 each MC DAILY@2200 [facility] Last Admin: 06/09/18 21:21 Dose: Not Given Naproxen (Naprosyn -) 500 mg PO BID PRN PRN Reason: PAIN LEVEL 1-5 Last Admin: 06/10/18 00:23 Dose: 500 mg Ranitidine HCl (Zantac -) 150 mg PO DAILY [facility] Last Admin: 06/09/18 10:24 Dose: 150 mg Sertraline HCl (Zoloft -) 100 mg PO HS [facility] Last Admin: 06/09/18 21:21 Dose: 100 mg - Objective Vital Signs: Vital Signs Temperature 97.9 F 06/10/18 05:00 Pulse Rate 55 L 06/10/18 05:00 Respiratory Rate 20 06/10/18 05:00 Blood Pressure 136/62 06/10/18 05:00 O2 Sat by Pulse Oximetry (%) 93 L 06/10/18 06:51 Constitutional: Yes: No Distress, Calm Neck: Yes: Supple Cardiovascular: Yes: Regular Rate and Rhythm Respiratory: Yes: Regular, CTA Bilaterally Gastrointestinal: Yes: Normal Bowel Sounds, Soft Edema: No Labs: CBC, BMP 06/09/18 06:50 06/09/18 06:50 Problem List - Problems (1) Hypertension Code(s): I10 - ESSENTIAL (PRIMARY) HYPERTENSION Qualifiers: Hypertension type: essential hypertension Qualified Code(s): I10 - Essential (primary) hypertension (2) Gait instability Code(s): R26.81 - UNSTEADINESS ON FEET (3) History of laminectomy Code(s): Z98.890 - OTHER SPECIFIED POSTPROCEDURAL STATES (4) Frequent falls Code(s): R29.6 - REPEATED FALLS (5) Syncope Code(s): R55 - SYNCOPE AND COLLAPSE Qualifiers: Syncope type: vasovagal syncope Qualified Code(s): R55 - Syncope and collapse Assessment/Plan 06/09/2018 Echo: Normal biventricular size and fxn with mild TR 06/09/2018 Carotid: No stenosis 1. Syncope suspect micturition etiology on toilet 2. RA 3. Chronic sciatica s/p laminectomy in 2017 with gait instability and frequent falls 3.HTN 4. 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 Consider upright tilt table testing as outpatient 3. PT for gait training 4. Continue Atenolol 25 qd 5. D/c planning with f/u in office
--- NOTE | 2018-06-10 10:04 | DS ---
Physical Exam: SUBJECTIVE: Patient seen and examined, ambulatory at bedside with cane, reports improvement of pain to right lower extremity. OBJECTIVE:This is a 72 year old female with a significant past medical history of HTN, RA, Lumbar laminectomy L3-L5 who presented to the ED s/p syncope last night. Pt states she went to the bathroom, remembers entering the bathroom and then woke up on the floor. Her heard a noise and went to check on her and found her on the bathroom floor. She denies any prodromal symptoms. She reports that she has been having increased pain in her lower back radiating to her legs and has been having balance problems. She is currently going for physical therapy twice weekly for her back and balance. She reports a history of multiple falls ER course was notable for: (1) troponin neg x 1, ecg no changes (2) CT head Vital Signs Period Temp Pulse Resp BP Sys/Machado Pulse Ox Last 24 Hr 97.5 F-98.6 F 55-69 18-20 132-153/62-87 93-100 PHYSICAL EXAM GENERAL: The patient is awake, alert, and fully oriented, in no acute distress. HEAD: Normal with no signs of trauma. EYES: PERRL, extraocular movements intact, sclera anicteric, conjunctiva clear. No ptosis. ENT: Ears normal, nares patent, oropharynx clear without exudates, moist mucous membranes. NECK: Trachea midline, full range of motion, supple. LUNGS: Breath sounds equal, clear to auscultation bilaterally, no wheezes, no crackles, no accessory muscle use. HEART: Regular rate and rhythm, S1, S2 without murmur, rub or gallop. ABDOMEN: Soft, nontender, nondistended, normoactive bowel sounds, no guarding, no rebound, no hepatosplenomegaly, no masses. EXTREMITIES: 2+ pulses, warm, well-perfused, no edema. positive SLR to right lower extremity at 45 negative SLR to left lower extremity a 45 and at 90 NEUROLOGICAL: Cranial nerves II through XII grossly intact. Normal speech, gait not observed. PSYCH: Normal mood, normal affect. SKIN: Warm, dry, normal turgor, no rashes or lesions noted LABS CBC WBC 5.7 K/mm3 (4.0-10.8) 06/09/18 06:50 RBC 3.89 M/mm3 (3.60-5.2) 06/09/18 06:50 Hgb 13.1 GM/dl (10.7-15.3) 06/09/18 06:50 Hct 39.2 % (32.4-45.2) 06/09/18 06:50 MCV 100.7 fl (80-96) H 06/09/18 06:50 MCH 33.8 pg (25.7-33.7) H 06/09/18 06:50 MCHC 33.5 g/dl (32.0-36.0) 06/09/18 06:50 RDW 14.0 % (11.6-15.6) 06/09/18 06:50 Plt Count 190 K/MM3 (134-434) 06/09/18 06:50 MPV 9.3 fl (7.5-11.1) 06/09/18 06:50 Absolute Neuts (auto) 2.8 K/mm3 06/09/18 06:50 Neutrophils % 50.2 % (42.8-82.8) 06/09/18 06:50 Lymphocytes % 38.9 % (8-40) 06/09/18 06:50 Monocytes % 7.0 % (3.8-10.2) 06/09/18 06:50 Eosinophils % 3.3 % (0-4.5) 06/09/18 06:50 Basophils % 0.6 % (0-2.0) 06/09/18 06:50 CMP Sodium 139 mmol/L (136-145) 06/09/18 06:50 Potassium 4.1 mmol/L (3.5-5.1) 06/09/18 06:50 Chloride 102 mmol/L (98-107) 06/09/18 06:50 Carbon Dioxide 29 mmol/L (22-28) H 06/09/18 06:50 Anion Gap 8 MMOL/L (8-16) 06/09/18 06:50 BUN 17 mg/dl (7-18) 06/09/18 06:50 Creatinine 0.9 mg/dl (0.6-1.3) 06/09/18 06:50 Creat Clearance w eGFR > 60 (>60) 06/09/18 06:50 Random Glucose 97 mg/dl (74-106) 06/09/18 06:50 Calcium 9.1 mg/dl (8.4-10.2) 06/09/18 06:50 Phosphorus 4.3 mg/dl (2.5-4.6) 06/09/18 06:50 Magnesium 2.0 mg/dL (1.8-2.4) 06/09/18 06:50 Total Bilirubin 0.9 mg/dl (0.2-1.0) 06/08/18 15:12 AST 22 U/L (10-42) 06/08/18 15:12 ALT 20 U/L (10-40) 06/08/18 15:12 Alkaline Phosphatase 21 U/L (32-92) L 06/08/18 15:12 Creatine Kinase 30 IU/L (26-192) 06/09/18 06:50 Troponin I < 0.03 ng/ml (0.00-0.06) 06/09/18 06:50 Total Protein 7.0 g/dl (6.4-8.3) 06/08/18 15:12 Albumin 4.0 g/dl (3.5-5.0) 06/08/18 15:12 Microbiology 06/08/18 15:34 Urine - Urine Clean Catch Urine Culture - Final NO GROWTH OBTAINED ECG sinus bradycardia vent rate 57, QTC [address]/T wave changes Radiology Reports CT head IMPRESSION: No significant interval change. Moderate atrophy and probable mild periventricular chronic microvascular ischemic disease changes without gross evidence of acute intracranial pathology. No acute intracranial hemorrhage is seen. The calvarium is intact. Reported By: Aram Colunga MD 06/08/18 5711 carotid doppler: no hemodynamic stenosis noted echo LV WNL mild TR HOSPITAL COURSE: patient was admitted from the emergency department to observation telemetry for syncopal episode, echocardiogram and carotid Doppler noted as above. troponin [address] May was consulted, patient will require outpatient follow-up. Neurologist Dr. Crespo was consulted, advised outpatient follow-up. Patient has a past medical history of hypertension. And home dose atenolol was continued throughout admission, blood pressure remained at goal. She does have a past medical history of chronic lumbar pain, patient is status post laminectomy 2017. Patient denies any saddle anesthesia no changes of bowel or bladder patterns. Lidoderm patch Flexeril and naproxen was given during admission. Patient ambulated independently with a cane. Physical therapy evaluation completed. She is safe for discharge home referral given to ortho/ orthopedic cast specialist in hand. PLAN - discharge patient home she declines VNS - Discharged with Lidoderm Flexeril and naproxen - Referral given hand for ortho/orthopedic cast specialist - return precautions reviewed, ie chest pain, dizziness, shortness of breath, saddle anesthesia, and changes to bowel or bladder patterns, patient advised she must return to the emergency department, all questions answered patient verbalizes understanding. Date of Admission:06/08/18 Date of Discharge: 06/10/18 Minutes to complete discharge: 45 Discharge Summary Reason For Visit: SYNCOPE BACK PAIN PAIN LOWER EXTRMITIES Current Active Problems Back pain (Acute) Frequent falls (Acute) Gait instability (Acute) History of laminectomy (Acute) Hypertension (Acute) Leg pain (Acute) Syncope (Acute) Condition: Improved - Instructions Diet, Activity, Other Instructions: resume low-sodium diet continue naproxen as needed for pain, please take naproxen with food These take ranitidine when taking naproxen Continue Flexeril for muscle spasms as needed Please do not drive when taking Flexeril Use Lidoderm patch as needed continue all medications as prescribed Please follow-up with orthopedic cast specialist Dr. 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 within 2 weeks If any new or persistent symptoms develop please return to emergency department Referrals: Reji Comer MD [Staff Physician] - 2 Weeks Tu Manriquez MD [Staff Physician] - 1 Week Kennedy May MD [Staff Physician] - 2 Weeks Disposition: HOME - Home Medications Comprehensive Discharge Medication List: Ambulatory Orders Methotrexate Sodium [Methotrexate] 15 mg PO ASDIR tablet 11/06/15 Sertraline HCl [Zoloft -] 100 mg PO HS 01/28/16 Atenolol [Tenormin -] 25 mg PO DAILY 12/01/16 Leucovorin Calcium 10 mg PO HS tablet 02/24/17 This patient is new to me today: No Emergency Visit: Yes ED Registration Date: 06/08/18 Care time: The patient presented to the Emergency Department on the above date and was hospitalized for further evaluation of their emergent condition. Critical Care patient: No - Discharge Referral Referred to [facility] Med [facility] Yes Physician Referral: Reji Comer MD (Int Med)
[2018-06-10] MEDS: ATENOLOL 25 MG TABLET (FP) PO SCH (10:28)
[2018-06-10] MEDS: LIDOCAINE 5% TOPICAL PATCH TP SCH (10:28)
[2018-06-10] MEDS: RANITIDINE HCL 150 MG TABLET (FP) PO SCH (10:28)
== END 2018-06-10 11:15 | disposition home or self-care (01) ==
LOC: FER 14:01 → FM/S 16:40
PROVIDERS: ADMIT Internal Medicine; ATTEND Nurse Practitioner Family
PROC: 3E0333Z Introduction of Anti-inflammatory into Peripheral Vein, Percutaneous Approach (ICD-10-PCS; principal; 2018-06-08)
DX: R55 Syncope and collapse (principal); M54.9 Dorsalgia, unspecified; R29.6 Repeated falls; R26.81 Unsteadiness on feet; I10 Essential (primary) hypertension; M06.9 Rheumatoid arthritis, unspecified; K21.9 Gastro-esophageal reflux disease without esophagitis; K44.9 Diaphragmatic hernia without obstruction or gangrene; Z87.898 Personal history of other specified conditions; Z88.1 Allergy status to other antibiotic agents; Z98.890 Other specified postprocedural states; R00.1 Bradycardia, unspecified; M79.604 Pain in right leg; M79.605 Pain in left leg
CPT/HCPCS: 36415; 70450-TC; 71046-TC-FY; 73562-TC-RT-FY; 80048; 80053; 81003; 82550; 83735; 84100; 84484; 85025; 87086; 93005; 93306-TC; 93880-TC; 93970-TC; 96374; 97116-GP; 97161-GP; 99283-25; G0378